=== PATIENT | female | born 1950 | race Caucasian/White ===

== ENCOUNTER 2019-06-29 16:46 | Inpatient (IN) | payer MEDICARE, OTHER ==
[~2019-06-29] VITALS: Ht 157.5 cm; Wt 99.6 kg
--- NOTE | ~2019-06-29 | HEMODYNAMI ---
PATIENT:SHILO ORTIZ MEDICAL RECORD: [id number] : 54 [facility]# [id number] ADMISSION DATE: 06/29/19 Generatedon:06/30/201913:48 Patient name: SHILO ORTIZ Patient #: [id number] SSN: [id number] : 1950 Date of study: 06/30/2019 Page: Of Hemodynamic Procedure Report Patient Data Patient Demographics Procedure consent was obtained First Name: SHILO Gender: Female Last Name: ANGEL : 1950 Middle Initial: C Age: 68 year(s) Patient #: [id number] Race: SSN: [id number] Additional ID: [id number] Contact details [address]: [address] [place] [address] State: [place] City: [place] Zip code: [address] Past Medical History Allergies Allergen Reaction Date Comments Reported Other allergy 06/30/2019 pcn, demerol, cycloiben, nylon sutures Admission Admission Data Admission Date: 06/29/2019 Admission Time: 18:50 Admit Source: Emergency department Room #: D.2117 Lab Results Lab Result Date: 06/30/2019 Lab Result Time: 5:26 Biochemistry Name Units Result Min Max BUN mg/dl 11 --(-*--)-- 7 18 Creatinine mg/dl 0.6 --(*---)-- 0.6 1.3 CBC Name Units Result Min Max Hematocrit % 36.4 *-(----)-- 42 54 Hemoglobin g/dl 12.4 *-(----)-- 13.5 17.5 Procedure Procedure Types Cath Procedure Diagnostic Procedure C [facility] w/Coronaries Procedure Description Procedure Date Procedure Date: 06/30/2019 Procedure Start Time: 13:34 Procedure End Time: 13:48 Procedure Staff Name Function Jesus Sen MD Performing Physician Maxim Nassar RT Monitor Gabriel Melendez RT Scrhui Terrell RN Nurse Procedure Data Cath Procedure Fluoroscopy Diagnostic fluoroscopy Total fluoroscopy Time: 1.3 time: 1.3 min min Diagnostic fluoroscopy Total fluoroscopy dose: 440 dose: 440 mGy mGy Contrast Material Contrast Material Type Amount (ml) Isovue 300 62 Entry Location Entry Primary Successful Side Size Upsize Upsize Entry Closure Succes sful Closure Location (Fr) 1 (Fr) 2 (Fr) Remarks Device Remarks Femoral Right 5 Fr Exoseal artery Estimated blood loss: 5 ml Diagnostic catheters Device Type Used For End Catheter Placement MULTIPACK JL 4.0 5Fr Procedure catheter MULTIPACK 3DRC 5Fr Procedure catheter MULTIPACK Pigtail 5 Fr Procedure catheter Procedure Complications No complications Procedure Medications Medication Administration Route Dosage Versed I.V. 2 mg Fentanyl I.V. 100 mcg Hemodynamics Rest HGB: 12.4 (g/dl) Heart Rate: 98 (bpm) Pressure Samples Time Site Value (mmHg) Purpose Heart Use Rate(bpm) 13:42 LV 121/12,24 Snapshot 74 13:43 AO 124/62(94) Pullback 88 Gradients Valve Time Site Site 2 Mean SEP/DFP Peak To Heart Use 1 (mmHg) (sec/min) Peak Rate (mmHg) (bpm) Aortic 13:43 LV AO 88 124/62(94) Snapshots Pre Cath Intra NCS Post Cath Vital Signs Time Heart Resp SPO2 etCO2 NIBP (mmHg) Rhythm Pain Sedation Rate (ipm) (%) (mmHg) Status Level (bpm) 13:27:55 68 25 97 0 131/69(104) NSR 0 (11) 10(A) , No pain 13:32:15 70 16 98 37.3 132/67(107) NSR 0 (11) 10(A) , No pain 13:36:32 67 16 98 32.8 111/63(96) NSR 0 (11) 10(A) , No pain 13:40:45 68 19 98 43.3 119/62(91) NSR 0 (11) 9(A) , No pain 13:45:00 71 21 98 39.5 109/64(96) NSR 0 (11) 10(A) , No pain Medications Time Medication Route Dose Verified Delivered Reason Notes Effectivene ss by by 13:37:56 Versed I.V. 2 mg Vini Martini for Xander Terrell sedation RN RN 13:38:03 Fentanyl I.V. 100 Vini Bailey[place] [facility]ander Terrell sedation RN candy separator enrobing Log Time Note 13:00:33 Gabriel Melendez RT(R) (CV) sent for patient. Start room use. 13:08:13 Informed consent obtained and on chart 13:10:31 Admit Source: Emergency department 13:15:31 Procedure Status Urgent Heart Cath (IP). 13:15:39 Time tracking: Regular hours (M-F 7:00 - 5:00) 13:15:42 Plan of Care:Hemodynamics will remain stable., Cardiac rhythm will remain stable., Comfort level will be maintained., Respiratory function will remain adequate., Patient/ family verbilizes understanding of procedure., Procedure tolerated without complication., Recovers from procedure without complications.. 13:15:46 Patient received from Med II to CCL 1 Alert and oriented. Tansferred to table in Supine position. 13:15:52 Warm blankets applied, and mika hugger turned on for patient comfort. 13:15:53 Correct patient and procedure confirmed by team. 13:15:53 ECG and BP/O2 sat monitors applied to patient. 13:16:02 H&P Date Dictated: 06/29/2019 Within 30 days and on chart.. 13:16:36 Lab Result : Creatinine 0.6 mg/dl 13:16:36 Lab Result : BUN 11 mg/dl 13:16:36 Lab Result : Hemoglobin 12.4 g/dl 13:16:37 Lab Result : Hematocrit 36.4 % 13:16:39 Lab results completed and on chart. 13:16:42 Right groin area was prepped with chlora-prep and draped in sterile fashion 13:16:43 Alarms reviewed by R. N. 13:16:43 Sharps counted by scrub and verified by R.N. 13:26:45 Vital chart was started 13:29:34 Baseline sample Acquired. 13:29:55 Baseline sample Acquired. 13:30:03 Rhythm: sinus rhythm 13:32:16 Pre-procedure instructions explained to patient. 13:32:17 Pre-op teaching completed and patient verbalized understanding. 13:32:18 Family in waiting room. 13:32:19 Patient NPO since Midnight. 13:32:42 Patient allergic to Other allergypcn, demerol, cycloiben, nylon sutures 13:32:43 Is the patient allergic to Iodine/contrast media? No. 13:32:44 Is patient on blood thinner?No 13:32:45 Patient diabetic? No. 13:32:48 Previous problem with sedation/anesthesia? No ? 13:32:49 Snore? No 13:32:50 Sleep apnea? No 13:32:51 Deviated septum? No 13:32:52 Opens mouth fully? Yes 13:32:53 Sticks out tongue? Yes 13:32:54 Airway obstruction? No ? 13:33:07 Dentures? Yes in tight 13:33:09 Pre procedure: right dorsailis pedis pulse 2+ Normal; easily identifiable; not easily obliterated 13:33:10 Patient pain scale 0/10 ?. 13:33:15 IV patent on arrival in right wrist with 0.9% NaCl at [facility]. 13:33:19 Physician paged 13:33:20 --------ALL STOP TIME OUT------ 13:33:20 Final Timeout: patient, procedure, and site verified with staff and physician. All members of the team are in agreement. 13:33:22 Right groin site verified by team. 13:33:25 Fire Safety Assessment: A--An alcohol-based skin anteseptic being used preoperatively., C--Open oxygen or nitrous oxide is being used., D--An ESU, laser, or fiber-optic light is being used. 13:33:27 Physical assessment completed. ASA score P 2 - A patient with mild systemic disease as per Jesus Sen MD. 13:33:59 1) 90+ Normal kidney functon but urine findings or structural abnormalities or genetic trait point to kidney disease. 13:34:02 Maximum allowable contrast dose (3.7 X eGFR X 0.75)250 ml. 13:34:05 Sedation plan: IV Moderate Sedation Medication:Versed, Fentanyl 13:34:09 Procedure started. 13:34:09 Full Disclosure recording started 13:34:12 Use device set Femoral Dx 13:34:13 ACIST Syringe (42495) opened to sterile field. 13:34:13 Bag Decanter () opened to sterile field. 13:34:13 Medline Cath Pack ([id number]) opened to sterile field. 13:34:14 ACIST Hand Control (68480) opened to sterile field. 13:34:15 ACIST Manifold (66216) opened to sterile field. 13:34:15 Tegaderm 4 x 4 (1626W) opened to sterile field. 13:34:16 SHEATH 5FR [place] ([id number]) opened to sterile field. 13:34:17 EMERALD Guide Wire (726-865) opened to sterile field. 13:34:18 DIAGNOSTIC Multipack 5Fr catheter set ([id number]) opened to sterile field. 13:34:25 Local anesthetic to right femoral artery with Lidocaine 2% by Jesus Sen MD.INITIAL ACCESS ONLY 13:34:33 A 5 Fr sheath was inserted into the Right Femoral artery 13:37:33 Zero performed for pressure channel P1 13:37:56 Versed 2 mg I.V. was administered by Vini Terrell RN; for sedation; 13:38:03 Fentanyl 100 mcg I.V. was administered by Vini Terrell RN; for sedation; 13:38:08 A MULTIPACK JL 4.0 5Fr catheter was advanced over the wire and used for Procedure. 13:39:39 LCA angiography performed. 13:40:23 Catheter exchanged over wire. 13:40:37 A MULTIPACK 3DRC 5Fr catheter was advanced over the wire and used for Procedure. 13:41:02 RCA angiography performed. 13:41:35 Catheter removed. 13:41:36 EXOSEAL 5Fr (EX500) opened to sterile field. 13:41:41 A MULTIPACK Pigtail 5 Fr catheter was advanced over the wire and used for Procedure. 13:43:00 LV gram done using LUCERO 13:43:03 Injector settings: Ml/sec: 10, Volume: 20, 13:43:04 LV hemodynamics recorded. 13:43:16 EF : 55 % 13:44:46 Catheter removed. 13:44:57 Sheath removed intact; hemostasis achieved with Exoseal to the Right Femoral artery. 13:44:58 Procedure ended.(Physican Out) 13:45:40 Fluoroscopy time 01.30 minutes. 13:45:44 Fluoroscopy dose: 440 mGy 13:45:44 Flurop Dose total: 440 13:45:52 Dose Area Product 33135 mGy/cm. 13:46:23 Contrast amount:Isovue 300 62ml. 13:46:28 Maximum allowable dose exceeded? No. 13:46:30 Sharps counted by scrub and verified by R.N. 13:46:30 Insertion/operative site no bleeding no hematoma. 13:46:33 Post-op/insertion site Right Femoral artery dressed using a 4 x 4 and Tegaderm. 13:46:37 Post right femoral artery:stable, soft, clean and dry 13:47:10 Post Procedure Pulses reassessed and unchanged 13:47:12 Post-procedure physical assessment completed. ASA score P 2 - A patient with mild systemic disease as per Jesus Sen MD. 13:47:15 Post procedure rhythm: unchanged. 13:47:17 Estimated blood loss: 5 ml 13:47:18 Post procedure instruction explained to patient.Patient verbalizes understanding. 13:47:19 Patient needs reinforcement of post procedure teaching. 13:47:52 Procedure and supply charges have been captured, reviewed, submitted and are correct. 13:47:55 Procedure Complication : No complications 13:47:56 Vital chart was stopped 13:47:57 See physician's report for complete and final results. 13:47:59 Report given to PCU. 13:48:01 Patient transfered to PCU with Stretcher. 13:48:04 Procedure ended. 13:48:04 Full Disclosure recording stopped 13:48:08 End room use (Document Last) Device Usage Item Name Manufacture Quantity Catalog Hospital Part Current Minimal L ot# / Number Charge Number Stock Stock Serial# Code ACIST Acist 1 05182 803663 373838 [id number] 20 Syringe Medical (22273) Systems Inc Bag Microtek 1 2001S 934725 66529 560468 5 Decanter Medical Inc. () Medline Medline 1 [id number] 691301 15439 377171 5 Cath Pack ([id number]) ACIST Hand Acist 1 13933 866365 692432 651252 5 Control Medical (63116) Systems Inc ACIST Acist 1 42868 814783 911818 400296 5 Manifold Medical (62859) Systems Inc Tegaderm 4 3M 1 1626W 027492 774241 437701 5 x 4 (1626W) SHEATH 5FR Terumo 1 HHW996 945026 829115 701773 5 [place] (WRU637) EMERALD Cardinal 1 502-455 374988 606438 296550 5 Guide Wire [facility] (502-455) DIAGNOSTIC Cardinal 1 TI3414 758540 44740 662647 30 Multipack Health 5Fr catheter set (TY7592) MULTIPACK Cardinal 1 032030 5 JL 4.0 5Fr Health catheter MULTIPACK Cardinal 1 790727 5 3DRC 5Fr Health catheter EXOSEAL 5Fr Cardinal 1 EX500 778058 822795 450987 10 (EX500) Health MULTIPACK Cardinal 1 828733 5 Pigtail 5 Health Fr catheter Signature Audit [place] Stage Time Signature Unsigned Intra-Procedure 06/30/2019 Maxim Nassar 1:48:44 PM RT(R) Signatures Performing Physician : Signature : Jesus Sen MD Date : Time : Monitor : Maxim Nassar RT Signature : Date : Time : Nurse : Vini Terrell Signature : RN Date : Time : [place] [address] [place] [address]
[~2019-06-29 16:46] MED LIST: CALTRATE 600 M600 M1 PO; DETROL2 MG PO; DILAUDID2 MG PO; IBUPROFEN800 MG PO; MAG-OX 400 MG400 MG PO; MIRAPEX0.25 MG PO; PEPCID40 MG PO; PRILOSEC20 MG PO; REGLAN10 MG PO; VITAMIN B-1250 MG PO; VITAMIN B650 MG PO
[2019-06-29] MEDS ORDERED: REGLAN10 MG PO (16:53)
[2019-06-29] MEDS ORDERED: VITAMIN D5000 UNIT PO (16:54)
[2019-06-29 17:09] LABS: BASOPHILS 1.2 % (0-2); EOSINOPHILS 12.8 % (0-7); HEMATOCRIT 40.8 % (36.0-48.0); HEMOGLOBIN 14.3 g/dL (12-16); IMMATURE GRANULOCYTES 0.1 % (0-5); LYMPHOCYTES 37.3 % (15-50); MCH 32.7 pg (26.0-34.0); MCV 93.4 fL (80.0-100.0); MEAN PLATELET VOLUME 9.6 fL (7.4-10.4); NEUTROPHILS 38.6 % (40-80); PLATELET COUNT 303 10x3/uL (130-400); RBC 4.37 10x6/uL (4.00-5.40); RDW 12.9 % (11.5-14.5); WBC 10.7 10x3/uL (4.8-10.8)
[2019-06-29 17:12] VITALS: BP 123/67
[2019-06-29] MEDS ORDERED: LISINOPRIL2.5 MG PO (17:15)
[2019-06-29 17:30] LABS: APTT 26.7 SECONDS (22.8-39.4); INR 0.98 (0.85-1.17); PROTIME 12.5 SECONDS (11.6-15.0)
[2019-06-29 17:45] LABS: ALBUMIN 3.2 g/dL (3.4-5.0); ALKALINE PHOSPHATASE 107 U/L (46-116); ALT (SGPT) 32 U/L (10-68); BILIRUBIN - TOTAL 0.28 mg/dL (0.2-1.3); CALC OSMOLALITY 282 mosm/kg (275-300); CALCIUM 9.1 mg/dL (8.5-10.1); CARBON DIOXIDE 27.4 mmol/L (21.0-32.0); CHLORIDE - SERUM 105 mmol/L (98-107); CREATININE - SERUM 0.9 mg/dL (0.6-1.3); GLUCOSE 112 mg/dL (74-106); POTASSIUM - SERUM 4.7 mmol/L (3.5-5.1); PROTEIN - SERUM 7.6 g/dL (6.4-8.2); SODIUM 141 mmol/L (136-145); UREA NITROGEN 16 mg/dL (7-18); eGFR NON AFRICAN AMERICAN 66 mL/min (90-120)
[2019-06-29 17:58] LABS: CKMB 0.9 U/L (0.0-3.6); CREATINE KINASE 71 UL (21-215); TROPONIN-I < 0.017 ng/mL (0.000-0.060)
[2019-06-29 19:13] VITALS: BP 109/58
--- NOTE | 2019-06-29 19:15 | NUR ---
PT RESTING ON BED. NO S/S OF ACUTE DISTRESS NOTED AT THIS TIME. PT UPDATED ON PLAN OF CARE.
[2019-06-29 20:00] VITALS: BP 148/67
--- NOTE | 2019-06-29 20:36 | NUR ---
RECIEVED TO ROOM 2116 FROM ER CURTIS KENT. PT A&O. RESPERATIONS EVEN ON O2 AT 2 LITERS VIA NC. VITALS STABLE. IV TO RIGHT FORARM WITH CARDIZEM INFUSING AT 10 CC/HR. IV SITE CLEAN AND DRY. PLACED ON TELEMETRY, 77 SR PER MT. HISTORY AND MED REC OBTAINED. PT CURRENTLY DENIES PAIN OR NEEDS, OFFERED PT YOKO MANDUJANO, PT DECLINED AT THIS TIME. BED LOW, CL IN REACH.
[2019-06-29] MEDS ORDERED: PRAVACHOL40 MG PO (20:46)
[2019-06-29] MEDS ORDERED: ZYRTEC10 MG PO (20:46)
[2019-06-29] MEDS ORDERED: OXYBUTYNIN CHLOR5 MG PO (20:47)
[2019-06-29] MEDS ORDERED: IBUPROFEN400 MG PO (20:54)
--- NOTE | 2019-06-29 21:03 | NUR ---
PAGE OUT TO DR ORTEGA.
--- NOTE | 2019-06-29 22:22 | NUR ---
HS MEDS GIVEN WITH FRESH ICE WATER.
[2019-06-29 23:36] VITALS: BP 148/67; Ht 157.5 cm; Wt 99.6 kg
[2019-06-30] VITALS: BP 117/56
[2019-06-30 00:04] LABS: CREATINE KINASE 36 UL (21-215)
[2019-06-30 00:05] LABS: CKMB 1.2 U/L (0.0-3.6)
--- NOTE | 2019-06-30 03:40 | NUR ---
RESTING WITH EYES CLOSED, RESPERATIONS EVEN, NO S/S DISTRESS NOTED.
[2019-06-30 04:00] VITALS: BP 111/54
--- NOTE | 2019-06-30 05:11 | NUR ---
NOTIFIED BY MT THAT PTS HR IS IN THE UPPER 50's, CARDIZEM DROPPED TO 5 CC.
[2019-06-30 06:58] LABS: BASOPHILS 1.3 % (0-2); HEMATOCRIT 36.4 % (36.0-48.0); HEMOGLOBIN 12.4 g/dL (12-16); IMMATURE GRANULOCYTES 0.1 % (0-5); LYMPHOCYTES 39.3 % (15-50); MCHC 34.1 g/dL (31.0-37.0); MCV 94.1 fL (80.0-100.0); MEAN PLATELET VOLUME 9.8 fL (7.4-10.4); MONOCYTES 9.3 % (2-11); PLATELET COUNT 330 10x3/uL (130-400); RBC 3.87 10x6/uL (4.00-5.40); RDW 13.1 % (11.5-14.5)
[2019-06-30 07:02] LABS: WBC 6.9 10x3/uL (4.8-10.8)
[2019-06-30 07:03] LABS: ALBUMIN 2.7 g/dL (3.4-5.0); ALKALINE PHOSPHATASE 85 U/L (46-116); ALT (SGPT) 21 U/L (10-68); BILIRUBIN - TOTAL 0.27 mg/dL (0.2-1.3); CALC OSMOLALITY 277 mosm/kg (275-300); CALCIUM 8.6 mg/dL (8.5-10.1); CARBON DIOXIDE 27.7 mmol/L (21.0-32.0); CHLORIDE - SERUM 107 mmol/L (98-107); CREATINE KINASE 29 UL (21-215); CREATININE - SERUM 0.6 mg/dL (0.6-1.3); GLUCOSE 104 mg/dL (74-106); POTASSIUM - SERUM 3.9 mmol/L (3.5-5.1); PROTEIN - SERUM 6.2 g/dL (6.4-8.2); SODIUM 140 mmol/L (136-145); T4 THYROXIN - FREE 1.36 ng/dL (0.76-1.46); THYROID STIMULATING HORMONE 0.02 uIU/mL (0.36-3.74); TROPONIN-I 0.052 ng/mL (0.000-0.060); UREA NITROGEN 11 mg/dL (7-18); eGFR NON AFRICAN AMERICAN > 90 mL/min (90-120)
--- NOTE | 2019-06-30 08:36 | HP ---
PATIENT: SHILO ORTIZ MEDICAL RECORD: [id number] ACCOUNT: [id number] LOCATION:[address] : 54 ADMISSION DATE: 06/29/19 PCP: MARIO ALBERTO ALMEIDA MD HISTORY AND PHYSICAL EXAMINATION DATE OF ADMISSION: 06/29/2019. CHIEF COMPLAINT: Chest pain. HISTORY OF PRESENT ILLNESS: This is a 68-year-old female who is followed by Dr. Almeida presented to the ER after a 3-hour history of chest pain. No nausea. No vomiting, no radiation of symptoms to either arm, but it did go up to her neck. She states this is the fourth episode she has had and the worst episode over the last 2 or 3 weeks. They have lasted up to 3 hours, but usually go away, this one did go away and was more severe and she came in today to the ER where an EKG showed atrial fibrillation with a heart rate of 160. She is admitted for further care. PAST MEDICAL HISTORY: She states she has reactive airway disease. She has restless leg syndrome, degenerative disc disease, chronic low back pain, hyperlipidemia, and hypertension. PAST SURGICAL HISTORY: Hysterectomy, cholecystectomy, tonsillectomy. She has had mesh placed over a ventral hernia. ALLERGIES: PENICILLIN, FLEXERIL, DEMEROL, HYDROCODONE AND NYLON SUTURES. HOME MEDICATIONS: Zyrtec 10 mg once a day, lisinopril 20 mg once a day, pravastatin 40 mg once a day, ibuprofen 400 mg t.i.d. p.r.n. pain, Mirapex 0.25 mg p.o. at bedtime p.r.n. restless legs, calcium carbonate 1200 mg at bedtime, Pepcid 40 mg at bedtime, Reglan 10 mg 4 times a day, Ditropan 10 mg once a day, and vitamin D3 5000 units a day. SOCIAL HISTORY: She is a retired nurse. FAMILY HISTORY: Cardiovascular disease and diabetes in her parents. HABITS: She continues to smoke. Denies alcohol or drug use. REVIEW OF SYSTEMS: GENERAL: No major weight changes. HEENT: She has some allergies because she takes Zyrtec. RESPIRATORY: Long time smoker a good chance of having COPD but it was termed reactive airway disease in her chart. CARDIAC: No history of heart disease or arrhythmia. GASTROINTESTINAL: She has had reflux. Dr. Gary has done scopes on her. GENITOURINARY: She has overactive bladder. MUSCULOSKELETAL: Chronic low back pain with degenerative disc disease. NEUROLOGIC: No seizures or migraines. PSYCHIATRIC: Denies depression or melancholia. PHYSICAL EXAMINATION: VITAL SIGNS: When she presented to the ER, her temperature was 98.1 with a heart rate of 138, respirations were 20, blood pressure 155/86. Currently, her heart rates in the 70s and regular. She does not appear in acute distress at HISTORY AND PHYSICAL [id number] SHILO ORTIZ this time. SKIN: Warm and dry. HEENT: Grossly within normal limits. NECK: Supple. No JVD or bruit. HEART: Regular rate and rhythm without murmur. LUNGS: Clear. ABDOMEN: Obese, soft, nontender. EXTREMITIES: No edema. LABORATORY DATA: EKG showed irregularly irregular heart rate with 160 beats per minute. Chest x-ray showed no acute process. Liver functions were normal. CBC showed a white count of 10,700, hemoglobin 14.3, hematocrit 40.8. Basic metabolic panel was normal. INR 0.98. ASSESSMENT: 1. Atrial fibrillation with rapid ventricular response. 2. Hypertension. 3. Long history of smoking. PLAN: Cardiology has been consulted. She is on telemetry. She was given Cardizem and she is on diltiazem drip right now. We will check thyroid functions. Other tests or procedures as warranted. TRANSINT:[id number] Voice Confirmation ID: [id number] DOCUMENT ID: [id number] ROSAURA ORTEGA MD at 0836 CC: [id number] DICTATION DATE: 06/29/192204 SOCK KNITTER: 06/29/192304 ADM IN [place] [id number] [place] [address]
[2019-06-30 09:02] VITALS: BP 112/60
[2019-06-30 11:56] LABS: CREATINE KINASE 32 UL (21-215); TROPONIN-I 0.038 ng/mL (0.000-0.060)
[2019-06-30 13:07] VITALS: BP 126/62
--- NOTE | 2019-06-30 14:14 | CN ---
PATIENT NAME:SHILO ORTIZ MEDICAL RECORD: [id number] : 54 LOCATION:[facility] D.2117 ADMIT DATE: 06/29/19 ACCOUNT: [id number] CONSULTING PHYSICIAN: PATSY VASQUES MD REFERRING PHYSICIAN: ROSAURA ORTEGA MD DATE OF CONSULTATION: 06/30/2019 HISTORY OF PRESENT ILLNESS: A 68-year-old female with no known history of coronary artery disease, has a history of unspecified cardiac arrhythmias, previously on beta blockade, and calcium channel blockade 10-15 years ago, history of hypertension, hyperlipidemia, intermittent episodes of palpitations, chest tightness, pressure radiating to throat accompanied by shortness of breath, suspicious for angina, was found to have AFib with RVR, currently sinus on Cardizem drip, did have ST-T changes inferolaterally with her RVR. We are asked to see her concerning her cardiovascular status. PAST MEDICAL HISTORY: Includes: 1. History of hypertension. 2. Hyperlipidemia. 3. Osteoarthritis. ALLERGIES: PENICILLIN, HYDROCODONE, DEMEROL, FLEXERIL. SOCIAL HISTORY: Retired as a nurse. Nonsmoker. No set exercise program. Easily takes care of all her ADLs. REVIEW OF SYSTEMS: The patient reports easy bruising but reports no swollen glands. The patient reports no fever, no night sweats, no significant weight gain, no significant weight loss. No significant exercise tolerance. The patient reports no dry eyes, no irritation, no vision change. Patient reports no difficulty hearing and no ear pain. Patient reports no frequent nose bleeds or nose and sinus problems. Patient reports on arm pain on exertion. No shortness of breath while lying down. No history of heart murmur. Patient reports no cough, no wheezing or coughing up blood. Patient reports no abdominal pain, no vomiting. Normal appetite. No diarrhea and not vomiting blood. No nausea and no constipation. Patient reports no incontinence. No difficulty urinating. No hematuria. No increased frequency. Patient reports no muscle aches. No weakness, no arthralgias, no back pain. No swelling of the extremities. Patient reports no abnormal mole, no jaundice, no rashes. Reports no loss of consciousness. No weakness and no numbness. No seizures, dizziness, or headaches. The patient reports no depression, no sleep disturbance, feeling safe in a relationship and no alcohol abuse. Patient reports on fatigue. Reports no runny nose or sinus pressure. No itching, no hives, and no frequent sneezing. MEDICATIONS: Include Zyrtec 10 mg p.o. every day, lisinopril 20 mg p.o. day, pravastatin 40 every day, ibuprofen 400 t.i.d., Reglan 10 q.i.d. PHYSICAL EXAMINATION: GENERAL: This is a middle-aged female in no acute distress. VITAL SIGNS: Blood pressure 111/54, pulse is 69 and regular. HEENT: Normocephalic, atraumatic. NECK: No JVD or bruit. HEART: Regular. LUNGS: Good air excursion. CONSULT REPORT [id number] SHILO ORTIZ ABDOMEN: Soft, nontender. EXTREMITIES: Pulses 2+. There is no edema. NEUROLOGIC: Grossly intact. DIAGNOSTIC DATA: ECG shows initially an AFib RVR, nonspecific ST-T changes, currently sinus rhythm. IMPRESSION: Atrial fibrillation, unstable angina, history of hypertension, and hyperlipidemia. PLAN: We will plan for diagnostic angiography, intervention based on the above. TRANSINT:[id number] Voice Confirmation ID: [id number] DOCUMENT ID: [id number] PATSY VASQUES MD at 1414 CC: [id number] DICTATION DATE: 06/30/19834 STITCH BONDING MACHINE TENDER HELPER: 06/30/19 0851 ADM IN [address] [address]
--- NOTE | 2019-06-30 17:44 | NUR ---
PAGED DR BEAVERS FOR DISCHARGE ORDERS AND HE REPLIED THAT HE WOULD LIKE TO WATCH HER OVERNIGHT R/T HEART.
[2019-06-30 20:00] VITALS: BP 123/78
[2019-07-01 01:05] VITALS: BP 115/59
[2019-07-01 05:36] VITALS: BP 115/69
[2019-07-01 08:00] VITALS: BP 133/69
--- NOTE | 2019-07-01 09:43 | NUR ---
TELEMETRY SR. UP TO CHAIR WITH PT ASSIST. WILL CONT. PLAN OF CARE.
[2019-07-01 11:37] VITALS: BP 132/64
[2019-07-01] MEDS ORDERED: CARDIZEM120 MG PO (14:54)
--- NOTE | 2019-07-01 16:34 | NUR ---
IV AND TELEMETRY DCD. DC PLANS GIVEN. UNDERSTANDING VOICED. ESCORTED TO CAR BY W/C.
--- NOTE | 2019-07-01 16:48 | MORECARE ---
CASE MANAGEMENT DISCHARGE SUMMARY PATIENT: SHILO ORTIZ UNIT: [id number] ADM DATE: 06/29/19 AGE: 68 : 52 SEX: F ROOM/BED: D.3087 AUTHOR: GADIEL BLANCO PHYSICIAN: REFERRING PHYSICIAN: ROSAURA ORTEGA MD DATE OF SERVICE: 07/01/19 Discharge Plan Patient Name: SHILO ORTIZ [facility] [facility] 1950 Planned Disposition: Home Anticipated Discharge Date: 07/01/19 Discharge Date: 07/01/2019 Expected LOS: 2 Initial Reviewer: [email or web address] Initial Review Date: 07/01/2019 Generated: 07/01/19 5:48 pm Patient Name: SHILO ORTIZ Page 36639 at 1648 All edits/amendments must be made on the electronic document DICTATION DATE: 07/01/191646 FOUNTAIN MANAGER: JOAN 07/01/191646 RPT#: [id number] DC DATE:07/01/19 STATUS: DIS IN [facility] [address] [place] [address] END OF REPORT
--- NOTE | 2019-07-01 16:56 | MORECARE ---
CASE MANAGEMENT DISCHARGE SUMMARY PATIENT: SHILO ORTIZ UNIT: [id number] ADM DATE: 06/29/19 AGE: 68 : 54 SEX: F ROOM/BED: D.0152 AUTHOR: GADIEL BLANCO PHYSICIAN: REFERRING PHYSICIAN: ROSAURA ORTEGA MD DATE OF SERVICE: 07/01/19 Discharge Plan Patient Name: SHILO ORTIZ Facility: [facility]:[place] : 1950 Planned Disposition: Home Anticipated Discharge Date: 07/01/19 Discharge Date: 07/01/2019 Expected LOS: 2 Initial Reviewer: [email or web address] Initial Review Date: 07/01/2019 Generated: 07/01/19 5:56 pm Comments DCP- Discharge Planning Updated by [email or web address]: Óscar Galvin on 07/01/19 3:[address] Patient Name: SHILO ORTIZ Admission Status: ER Accout number: [id number] Admission Date: 06-29-2019 : 1950 Admission Diagnosis: Attending: ROSAURA ORTEGA Current LOS: 2 Anticipated DC Date: 07-01-2019 Planned Disposition: Home Primary Insurance: MEDICARE A & B Discharge Planning Comments: CM MET WITH PT IN ROOM TO DISCUSS DISCHARGE PLANNING AND NEEDS. PT REPORTS LIVING AT HOME INDEPENDENTLY WITH FAMILY, PT LIVES IN DOWNSTAIRS APARTMENT WITH 14 STEPS UP AND DOWN. PT HAS NO MEDICAL EQUIPMENT AND NO OUTSIDE SERVICES ASSISTING IN THE HOME. CM DISCUSSED AVAILABILITY OF HOME HEALTH, REHAB SERVICES AND MEDICAL EQUIPMENT. PT DENIES DISCHARGE NEEDS, REPORTS HER BROTHER WILL PICK HER UP FOR DISCHARGE HOME. RADIO INSTALLER NURSE NOTIFIED. Set Up And Charger: Óscar Galvin DCPIA - Discharge Planning Initial Assessment Updated by [email or web address]: Óscar Galvin on 07/01/19 4:50 pm * Is the patient Alert and Oriented? Yes * How many steps to enter\exit or inside your home? 0-O / 14-I * PCP DR. ALMEIDA * Pharmacy [facility] * Preadmission Environment Home with Family * ADLs Independent * Equipment None * Other Equipment NO MEDICAL EQUIPMENT PROVIDER PREFERENCE * List name and contact numbers for known caregivers / representatives who currently or will assist patient after discharge: APRIL MEADOWS, FRIEND, * Verbal permission to speak to the caregivers and representatives has been obtained from the patient. N/A * Community resources currently utilized None * Please name any agencies selected above. NONE * Additional services required to return to the preadmission environment? No * Can the patient safely return to the preadmission environment? Yes * Has this patient been hospitalized within the prior 30 days at any hospital? No Last DP export: 07/01/19 3:48 pm Patient Name: SHILO ORTIZ Page 13245 at 1656 All edits/amendments must be made on the electronic document DICTATION DATE: 07/01/191655 INFORMATION SYSTEMS PROJECT MANAGER: JOAN 07/01/191655 RPT#: [id number] [place] DATE:07/01/19 STATUS: DIS IN [facility] [address] [place] [address] END OF REPORT
--- NOTE | 2019-07-02 13:11 | EC ---
PATIENT:SHILO ORTIZ DATE OF SERVICE: 06/29/19 SEX: F MEDICAL RECORD: [id number] DATE OF : [birth year] LOCATION:D.M2 D.211 AGE OF PATIENT: 68 ADMISSION DATE: 06/29/19 REFERRING PHYSICIAN: INTERPRETING PHYSICIAN: PATSY VASQUES MD ECHOCARDIOGRAM REPORT ECHO CHARGES 4 ECHO COMPLETE Date: 06/30/19 CLINICAL DIAGNOSIS: AFIB ECHOCARDIOGRAPHIC MEASUREMENTS (adult normal given) AC root (d.<3.7cm) 2.6 cm LV Septum d (<1.2 cm> 0.6 cm Valve Excursion 1.3 cm LV Septum (systole) 0.9 cm Left Atria (s.<4.0cm> 3.7 cm LVPW d(<1.2cm) 1.2 cm RV (d.<2.3cm) 2.9 cm LVPW (sytole) 1.3 cm LV diastole(<5.6CM) 5.4 cm MV E-F(>70mm/sec) cm LV systole 4.2 cm LVOT Diameter 1.9 cm MV exc.(>10mm) cm Est.ejection fraction (50-75%) % DOPPLER: LVIT cm/sec A 91 cm/sec E 83 cm/sec LA cm/sec RVSP 2409 mmHg LVOT 133 cm/sec AOP1/2T m/s Asc. 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 Jean-Baptiste TAPE# PACS Pericardial Effusion N DATE OF SERVICE: Adequate 2-D, color-flow and spectral Doppler, and M-mode. No LVH. LV internal dimensions are normal. Wall motion is normal. EF is equal to 55%. Aortic valve is tricuspid. No evidence of stenosis by Doppler interrogation. Left atrium is normal. Mitral valve shows no prolapse. Trace MR. Right-sided chambers are grossly normal. Trace TR. TRANSINT:[id number] Voice Confirmation ID: [id number] DOCUMENT ID: [id number] ECHOCARDIOGRAM REPORT [id number] SHILO ORTIZ PATSY VASQUES MD at 1311 CC: [id number] DICTATION DATE: 06/30/19 1511 EMPLOYEE DEVELOPMENT MANAGER: 06/30/19 1755 DIS IN 07/01/19 [id number] [place] [address]
--- NOTE | 2019-07-02 13:11 | OP ---
PATIENT NAME: SHILO ORTIZ MEDICAL RECORD: [id number] :54 LOCATION:D.M2 D.2117 ADMISSION DATE:06/29/19 SURGEON: PATSY VASQUES MD DATE OF OPERATION: 06/30/2019 PROCEDURE: Left heart catheterization, selective coronary angiography, right femoral artery approach. CATHETERS: A 5-Martiniquais sheath, 5/4 left and right Ozzy, 5/4 pig. The procedure was well tolerated. The patient returned to philippe. Sheath removed. ExoSeal device placed. FINDINGS: Left ventriculography in 30-degree LUCERO view: Normal wall motion and normal systolic function. CORONARY ANATOMY: LEFT MAIN: Left main is free of disease. LAD: Free of disease in the diagonal system. CIRCUMFLEX: Free of disease in the marginal system. RIGHT CORONARY ARTERY: Somewhat of a codominant system, free of disease. IMPRESSION: Normal LV systolic function. Normal coronary anatomy. TRANSINT:[id number] Voice Confirmation ID: [id number] DOCUMENT ID: [id number] PATSY VASQUES MD at 1311 CC: [id number] DICTATION DATE: 06/30/19 1354 LEARNING DISABILITIES TEACHER: 06/30/19 1604 DIS IN 07/01/19 [facility] [address] [place] [address]
== END 2019-07-01 16:34 | disposition home or self-care (01) | DRG 287 ==
LOC: D.ER 16:46 → D.M2 18:50
PROVIDERS: Family Medicine; Internal Medicine Interventional Cardiology; ADMIT Family Medicine; ATTEND Family Medicine
PROC: B2151ZZ Fluoroscopy of Left Heart using Low Osmolar Contrast (ICD-10-PCS; 2019-06-30)
PROC: 4A023N7 Measurement of Cardiac Sampling and Pressure, Left Heart, Percutaneous Approach (ICD-10-PCS; 2019-06-30)
PROC: B2111ZZ Fluoroscopy of Multiple Coronary Arteries using Low Osmolar Contrast (ICD-10-PCS; principal; 2019-06-30 13:00)
DX: I48.91 Unspecified atrial fibrillation (principal); I20.0 Unstable angina; I10 Essential (primary) hypertension; E78.5 Hyperlipidemia, unspecified; F17.200 Nicotine dependence, unspecified, uncomplicated

== ENCOUNTER 2020-04-01 12:00 | Emergency (ER) | payer MEDICARE, OTHER ==
[~2020-04-01] VITALS: Ht 157.5 cm; Wt 102.3 kg
[~2020-04-01 12:00] MED LIST changes: +CARDIZEM120 MG PO; +IBUPROFEN400 MG PO; +LISINOPRIL2.5 MG PO; +OXYBUTYNIN CHLOR5 MG PO; +PRAVACHOL40 MG PO; +VITAMIN D5000 UNIT PO; +ZYRTEC10 MG PO
[2020-04-01 12:27] VITALS: Ht 157.5 cm; Wt 102.3 kg
[2020-04-01 13:08] LABS: BASOPHILS 0.3 % (0-2); EOSINOPHILS 2.3 % (0-7); HEMATOCRIT 43.2 % (36.0-48.0); HEMOGLOBIN 14.4 g/dL (12-16); LYMPHOCYTES 31.8 % (15-50); MCH 32.3 pg (26.0-34.0); MCHC 33.3 g/dL (31.0-37.0); MCV 96.9 fL (80.0-100.0); MEAN PLATELET VOLUME 9.7 fL (7.4-10.4); MONOCYTES 11.7 % (2-11); NEUTROPHILS 53.9 % (40-80); PLATELET COUNT 293 10x3/uL (130-400); RBC 4.46 10x6/uL (4.00-5.40); RDW 13.9 % (11.5-14.5); WBC 6.1 10x3/uL (4.8-10.8)
[2020-04-01 13:15] LABS: CALCIUM 8.8 mg/dL (8.5-10.1); CARBON DIOXIDE 26.2 mmol/L (21.0-32.0); CREATININE - SERUM 0.9 mg/dL (0.6-1.3); POTASSIUM - SERUM 4.2 mmol/L (3.5-5.1)
[2020-04-01 13:16] LABS: APTT 42.9 SECONDS (22.8-39.4); INR 3.17 (0.85-1.17); PROTIME 31.9 SECONDS (11.6-15.0)
[2020-04-01 13:21] LABS: ALBUMIN 3.6 g/dL (3.4-5.0); BILIRUBIN - TOTAL 0.3 mg/dL (0.2-1.3); PROTEIN - SERUM 7.4 g/dL (6.4-8.2)
[2020-04-01] MEDS ORDERED: LEVAQUIN750 MG PO (15:24)
[2020-04-01] MEDS ORDERED: FLAGYL500 MG PO (15:24)
[2020-04-01 16:12] VITALS: BP 150/90
== END 2020-04-01 16:12 | disposition home or self-care (01) ==
LOC: D.ER 12:00
PROVIDERS: Family Medicine
DX: K52.9 Noninfective gastroenteritis and colitis, unspecified (principal); R19.7 Diarrhea, unspecified; I10 Essential (primary) hypertension; K21.9 Gastro-esophageal reflux disease without esophagitis; Z72.0 Tobacco use; K92.1 Melena